=== PATIENT | male | born 1935 | race African-American/Black ===

== ENCOUNTER 2024-01-25 17:00 | Emergency (ER) | payer SELFPAY ==
[~2024-01-25] VITALS: Ht 182.9 cm; Wt 75.0 kg
[2024-01-25 17:04] VITALS: O2SAT 98
[2024-01-25 18:43] VITALS: BP 155/90; PULSE 93; RESP 19; TEMP 36.00288; O2SAT 97
== END 2024-01-25 19:37 | disposition home or self-care (01) ==
LOC: ER 17:00
DX: M25.551 Pain in right hip (principal); R51.9 Headache, unspecified; F03.90 Unspecified dementia, unspecified severity, without behavioral disturbance, psychotic disturbance, mood disturbance, and anxiety; Z86.59 Personal history of other mental and behavioral disorders; W01.0XXA Fall on same level from slipping, tripping and stumbling without subsequent striking against object, initial encounter; Y93.89 Activity, other specified; Y92.89 Other specified places as the place of occurrence of the external cause; Y99.8 Other external cause status
CPT/HCPCS: 72170; 99284